=== PATIENT | female | born 2005 | race American Indian/Alaskan Native ===

== ENCOUNTER 2025-02-13 00:30 | Emergency (ER) | payer OTHER ==
[~2025-02-13] VITALS: Ht 162.6 cm; Wt 55.5 kg
[~2025-02-13 00:30] MED LIST: BENADRYL A12.5 MG/5 PO; PREDNISOLO15 MG/5 ML PO
[2025-02-13 00:47] LABS: BLOOD/HGB, URINE TRACE-I (Negative); KETONE, URINE NEGATIVE (Negative); LEUK ESTERASE, URINE NEGATIVE (negative); NITRITE, URINE NEGATIVE (negative)
[2025-02-13 00:53] LABS: EPITHELIAL CELLS, URINE SQUAMOUS 2+ /lpf (0-1+)
[2025-02-13 00:54] LABS: BACTERIA, URINE RARE /hpf (negative); CASTS, URINE NONE SEEN \\lpf; CRYSTALS, URINE NONE SEEN (0-1+); REFLEX CULTURE, URINE No (No)
[2025-02-13 01:02] LABS: AMPHETAMINES, URINE NEGATIVE (NEGATIVE); BARBITURATES, URINE NEGATIVE (NEGATIVE); BENZODIAZEPINE, URINE NEGATIVE (NEGATIVE); CANNABINOID, URINE POSITIVE (NEGATIVE); COCAINE, URINE NEGATIVE (NEGATIVE); ECSTASY, URINE NEGATIVE (NEGATIVE); FENTANYL, URINE NEGATIVE (NEGATIVE); METHADONE, URINE NEGATIVE (NEGATIVE); OPIATES, URINE NEGATIVE (NEGATIVE); OXYCODONE, URINE NEGATIVE (NEGATIVE); PHENCYCLIDINE, URINE NEGATIVE (NEGATIVE)
[2025-02-13 01:33] LABS: BASOPHILS 0.1 % (0.1-1.2); EOSINOPHILS 0.4 % (0.7-5.8); LYMPHOCYTES 36.0 % (19.3-51.7); MCH 21.0 PG (25.6-32.2); MCHC 29.3 g/dL (32.2-35.5); MCV 71.8 fL (79.4-94.8); MONOCYTES 4.6 % (4.7-12.5); NEUTROPHILS 58.8 % (34.0-71.1); RBC 4.71 M/uL (3.93-5.22)
[2025-02-13 01:57] LABS: ALCOHOL, MEDICAL 278 ng/dL (<3); ALT (SGPT) 17 U/L (14-59); AST (SGOT) 14 U/L (15-37); GLOMERULAR FILTRATION RATE,EST 119 mL/min (>60); PROTEIN, TOTAL 7.9 g/dL (6.4-8.2); TSH, 3RD GENERATION 0.533 uIU/mL (0.516-4.130); UREA NITROGEN 3 mg/dL (7-18)
[2025-02-13] MEDS ORDERED: LACTATED RINGER'S 1,000 ML IV ONE (02:15)
[2025-02-13] MEDS ORDERED: THIAMINE HCL 200 MG/2 ML VIAL IV ONE (02:15)
[2025-02-13 06:26] VITALS: BP 99/54
== END 2025-02-13 06:25 | disposition home or self-care (01) ==
LOC: ED 00:30
PROVIDERS: Internal Medicine
DX: F10.129 Alcohol abuse with intoxication, unspecified (principal)
CPT/HCPCS: 36415; 80053; 80307; 81001; 84443; 84703; 85025; 96374; 99284-25; G0480; J3411; J7121